=== PATIENT | female | born 1970 | race Two or more races ===

== ENCOUNTER → 2025-04-19 | Outpatient (CLI) | payer MEDICAID, SELFPAY ==
[2025-04-18 08:40] LABS: Basophils % (Auto) 0 % (0-2.5); Eosinophils % (Auto) 0 % (0-10); Hematocrit 46.1 % (36.0-46.0); Hemoglobin 15.5 g/dL (12.0-16.0); Immature Granulocytes % (Auto) 0 % (0-0); Immature Granulocytes Auto 0.04 Thou/mm3 (0.00-0.00); Lymphocytes # (Auto) 1.6 Thou/mm3 (1.0-4.8); Lymphocytes % (Auto) 16 % (10-50); Mean Corpuscular HGB Conc 33.6 g/dl (31.0-37.0); Mean Corpuscular Hemoglobin 28.4 pg (25.0-35.0); Mean Corpuscular Volume 84 fL (80-100); Monocytes # (Auto) 0.7 Thou/mm3 (0.0-0.8); Monocytes % (Auto) 7 % (0-12); Neutrophils # (Auto) 7.4 Thou/mm3 (1.8-7.7); Neutrophils % (Auto) 76 % (37-80); Nucleated Red Blood Cell % 0 /100 WBC (0); Platelet Count 233 Thou/mm3 (140-440); RDW Standard Deviation 39.7 fL (36.4-46.3); Red Blood Count 5.46 Miln/mm3 (4.00-5.20); White Blood Count 9.8 Thou/mm3 (3.6-11.0)
[2025-04-18 08:53] LABS: Partial Thromboplastin Time 29.9 Seconds (22.0-36.0); Prothrombin Time 10.7 Seconds (9.0-12.2)
--- NOTE | 2025-04-19 09:00 | XR_ITS ---
Examination: Thyroid sonography complete TECHNIQUE: Grayscale sonographic images thyroid lobes INDICATIONS: Patient says something stuck in the throat one year with 46 change 4 months Date and time: March 30, 2025 1005 hours FINDINGS: Right thyroid 5.0 cm Midpole cyst 3 x 3 mm Isthmus solid nodule 5 x 5 mm Left thyroid 4.9 cm Upper pole nodule 6 x 6 mm Lower pole nodule 14 x 10 mm IMPRESSION: Thyroid nodules as above
--- NOTE | 2025-04-19 09:30 | XR_ITS ---
Examination: Ultrasound-guided fine needle percutaneous aspiration thyroid nodule, left thyroid nodule. Thyroid sonography, limited Exam date and time: April 19, 2025 1013 hours INDICATIONS: Thyroid sonogram April 19, 2025 lower pole left thyroid nodule 14 mm. Technique: A timeout was completed verifying correct patient, procedure, site, positioning and special equipment if applicable. The patient was placed in supine position for the thyroid fine needle percutaneous aspiration The patient's left neck was prepped and draped in sterile fashion. Maximum barrier sterile technique, hand hygiene, ultrasound sterile technique. 1% lidocaine was used to anesthetize the skin and subcutaneous tissues to the patient's right thyroid nodule. Multiple fine needle aspirations were performed and multiple thyroid specimens placed in preservative according to the [employer] protocol. Specimens appears satisfactory. The attending radiologist was present for the entire procedure. Estimated blood loss 3 cc. The patient tolerated the procedure well and there were no complications. Impression: Successful ultrasound-guided fine-needle percutaneous aspiration thyroid nodule, left thyroid nodule.
== END | disposition home or self-care (01) ==
PROVIDERS: Radiology Diagnostic Radiology; PCP Physician Assistant; Referring Provider Surgery; Visit Provider Surgery
DX: E04.2 Nontoxic multinodular goiter (principal); Z01.812 Encounter for preprocedural laboratory examination
CPT/HCPCS: 10005; 36415; 76536; 85025; 85610; 85730